=== PATIENT | female | born 1965 | race Caucasian/White ===

== ENCOUNTER 2018-04-20 16:30 | Emergency (ER) | payer BC ==
[~2018-04-20] VITALS: Ht 165.1 cm; Wt 62.6 kg
[~2018-04-20 16:30] MED LIST: CIPRO500 MG PO; FAMOTIDINE20 MG PO; FISH OIL500 MG PO; HYDROCHLOROTH12.5 M1 PO; HYDROCHLOROTH12.5 MG PO; HYDROCODON-ACE1 EAC8 PO; KLOR-CON 1010 MEQ PO; LEVAQUIN500 MG PO; LISINOPRIL5 MG PO; METOPROLOL TART25 MG PO; NORCO 10-325 T1 EACH PO; NORCO 5-325 TA1 EACH PO; SERTRALINE HCL25 MG PO; VITAMIN B-121000 MCG PO; VITAMIN D-32000 UNIT PO; VITAMIN D5000 UNI1 PO; WELLBUTRIN SR100 MG PO
[2018-04-20] MEDS ORDERED: LEVAQUIN500 MG PO (18:14)
[2018-04-20] MEDS ORDERED: NORCO 5-325 TA1 EACH PO (18:14)
[2018-04-20] MEDS ORDERED: ONDANSETRON ODT8 MG PO (18:14)
== END 2018-04-20 20:05 | disposition home or self-care (01) ==
LOC: ED 16:30
DX: N39.0 Urinary tract infection, site not specified (principal); E87.6 Hypokalemia; I10 Essential (primary) hypertension; Z87.891 Personal history of nicotine dependence; Z88.0 Allergy status to penicillin; Z88.8 Allergy status to other drugs, medicaments and biological substances; Z79.899 Other long term (current) drug therapy
CPT/HCPCS: 80053; 81001; 85025; 96361; 96365; 96366; 96375; 99284; J1170; J1885; J1956; J2405; J3480; J7030

== ENCOUNTER 2021-04-03 05:40 | Day surgery (SDC) | payer BC ==
[~2021-04-03] VITALS: Ht 165.1 cm; Wt 66.4 kg
[~2021-04-03 05:40] MED LIST changes: +ONDANSETRON ODT8 MG PO
--- NOTE | 2021-04-03 08:48 | NUR ---
04/03/21 0848 Mendy Chi 0840-PATIENT ARRIVED TO PACU ON 6L MASK RR EVEN. PATIENT DROWSY AROUSES TO VERBAL STIMULI. NODS HEAD NO WHEN ASKED IF IN PAIN SR. IVF INFUSING. INCISION CDI. PILLOW TO ABDOMEN ADN ENCOURAGED TO HOLD. PATIENT COUGHING. NONPRODUCTIVE. 0845-PATIENT COUGHING HOLDING PILLOW DROWSY REPORTS PAIN 4/10 AND WINCING. WILL MEDICATE.
[2021-04-03] MEDS ORDERED: OXYCODON-ACETA1 EAC2 PO (08:52)
[2021-04-03] MEDS ORDERED: IBUPROFEN600 MG PO (08:52)
[2021-04-03] MEDS ORDERED: ACETAMINOPHEN500 MG PO (08:53)
--- NOTE | 2021-04-03 09:24 | NUR ---
0915: PT ARRIVES TO DS TREATMENT ROOM FROM PACU AWAKE. PT DENIES ANY NAUSEA AND RATES PAIN "MEDIUM." PT HAS PILLOW FOR CDB WITH NON-PRODUCTIVE COUGH. PT HOB RAISED TO APPROX 90 DEGREES PER REQUEST. PT SPOUSE AT BEDSIDE. PT PROVIDED ICED WATER AND APPLE JUICE PER REQUEST. CALL LIGHT WITHIN REACH.
--- NOTE | 2021-04-03 09:40 | NUR ---
PT TOLERATES APPLESAUCE WITH NO COMPLAINTS OF NAUSEA, PROVIDED ORAL PAIN MEDICATION. PT SPOUSE REMAINS AT BEDSIDE, CALL LIGHT WITHIN REACH.
--- NOTE | 2021-04-03 10:11 | NUR ---
PATIENT ASSISTED OOB AND TO BATHROOM. GAIT STEADY. VOID WITHOUT DIFFICULTY. GAIT STEADY BACK TO ROOM. PATIENT GETTING DRESSED WITH HELP FROM .
--- NOTE | 2021-04-03 10:27 | NUR ---
PT WOULD LIKE TO DC HOME, DC CRITERIA MET AT THIS TIME. PT STATES PAIN MEDICATION HELPED "A LOT" AND DENIES ANY NAUSEA. WILL PLAN TO DC SOON ONCE DC INSTRUCTIONS ARE COMPLETE.
--- NOTE | 2021-04-03 11:40 | NUR ---
[id number]: DC INSTRUCTIONS PRESENTED TO PT AND SPOUSE. PT VERBALIZES AN UNDERSTANDING OF INSTRUCTIONS. ABD BINDER PLACED ON PT, PT STATES "THAT HELPS SO SO MUCH!" PT MADE AWARE OF PAPER SCRIPT IN DC PACKET TO TAKE TO PHARMACY. PT DC VIA WC TO SPOUSE WAITING AT FRONT ENTRANCE OF HOSPITAL TO HOME.
--- NOTE | 2021-04-04 09:46 | OR ---
[facility] [address], [place] [address] Signed DATE OF OPERATION: 04/03/2021 SURGEON: Fay Knapp MD PREOPERATIVE DIAGNOSIS: Symptomatic incisional hernia, supraumbilical area. POSTOPERATIVE DIAGNOSIS: Symptomatic incisional hernia, supraumbilical area. PROCEDURES: 1. Repair of supraumbilical incisional hernia. 2. Implantation of Prolene mesh (underlay technique). INDICATION: This 55-year-old white woman is a patient of DWAIN Washington. She is referred for consideration of incisional hernia, noted cephalad to the umbilicus in the midline incision. The patient had undergone laparoscopic cholecystectomy with conversion to open operation through an upper midline incision by [place] in 2006. She was noted to have pancreatitis and saponification of the retroperitoneum requiring some debridement, cholecystectomy, and concurrent appendectomy. She has done well since that time. She has developed an epigastric supraumbilical bulge and pain related to this consistent with incisional hernia. An ultrasound was performed under the direction of DWAIN Washington, which confirmed herniation of fat. Given her symptoms and so forth, she is recommended to undergo repair. She understands the risks of bleeding, infection, recurrence, and other unforeseen complications and wished to proceed. FINDINGS: The fascial defect was approximately 3 cm. Herniated properitoneal fat was noted. The fascial edges were well defined. Repair consisted of implantation of Prolene mesh in the properitoneal space with additional transverse reapproximation of fascial edges. DESCRIPTION OF PROCEDURE: The patient was brought to the operating room, given a general anesthetic. Preoperative antibiotic Ancef was given. Sequential compression device stockings were used. The abdomen was prepared with a chlorhexidine solution and draped sterilely. The area designated as hernia had been marked preoperatively. An incision was made cephalad to the umbilicus a few cm. Dissection carried through the subcutaneous tissue with Electronically Signed By: FAY KNAPP MD 04/04/21 0946 PATIENT NAME: MANISH WISDOM OPERATIVE REPORT DATE OF : 65 REPORT #: [id number] PHYSICIAN: FAY KNAPP MD PCP: TIFFANY ARTHUR PA-C REPORT IS CONFIDENTIAL AND NOT TO BE RELEASED WITHOUT AUTHORIZATION [facility] [address] [place] [id number] Signed electrocautery. Ultimately, the hernia sac could be identified, which was more inferior in relation to the incision and anticipated. Dissection of the hernia sac from the surrounding soft tissue allowed for definition of the fascial defect as well. The fascial defect was approximately 3 cm. The hernia sac and attendant soft tissue were freed from the fascial edge and replaced to the properitoneal space. The properitoneal space was developed with blunt and electrocautery dissection circumferentially extending approximately 4 cm from the edge. A segment of Prolene mesh was cut to an oblong configuration and secured in the properitoneal space with interrupted 0 Prolene sutures. The fascia was then reapproximated transversely with interrupted 0 Prolene in a horizontal mattress configuration using Prolene pledgets. 20 mL of 0.25% Marcaine with epinephrine was injected locally. Calixto layer was reapproximated with interrupted 2-0 Vicryl and skin closed with running subcuticular 3-0 Vicryl. Steri-Strips were applied as was a silver sponge dressing (Acticoat). The patient was ultimately extubated and transferred to the recovery room in good condition having suffered no complications. Sponge, needle, and instrument counts were reported as correct x3. MD FABY Norwood/BARL /[id number] cc: DWAIN Washington Copies: ~ Electronically Signed By: FAY KNAPP MD 04/04/21 0946 PATIENT NAME: MANISH WISDOM OPERATIVE REPORT DATE OF : 65 REPORT #: [id number] PHYSICIAN: FAY KNAPP MD PCP: TIFFANY ARTHUR PA-C REPORT IS CONFIDENTIAL AND NOT TO BE RELEASED WITHOUT AUTHORIZATION
== END 2021-04-03 10:55 | disposition home or self-care (01) ==
LOC: DS 05:40
PROVIDERS: ATTEND Surgery
PROC: 0WUF0JZ Supplement Abdominal Wall with Synthetic Substitute, Open Approach (ICD-10-PCS; principal; 2021-04-03 06:45)
DX: K43.2 Incisional hernia without obstruction or gangrene (principal); I10 Essential (primary) hypertension; Z90.711 Acquired absence of uterus with remaining cervical stump; Z90.49 Acquired absence of other specified parts of digestive tract; Z98.82 Breast implant status
CPT/HCPCS: 00830; 80048; C1781; J0330; J0690; J1100; J1644; J1885; J2001; J2250; J2405; J2704; J3010; J7121